=== PATIENT | male | born 1955 | race Caucasian/White ===

== ENCOUNTER 2019-07-08 09:52 | Emergency (ER) | payer BC, SELFPAY ==
[2019-07-08 10:04] VITALS: BP 176/99; PULSE 96; RESP 16; TEMP 37.7; O2SAT 98
--- NOTE | 2019-07-08 10:35 | ED.GENADULT ---
HPI - General Adult General Chief complaint: Skin/Abscess/Foreign Body Stated complaint: bump in gumline History of Present Illness HPI narrative: Patient is a 63-year-old male presents to the urgent care via POV for evaluation of left upper gum problem that occurred approximately 4 to 5 days ago. He states that area is erythematous and painful. He believes his symptoms are caused by herpes. He has had a similar occurrence in the past of which he was treated by his dentist with an antibiotic. He states his symptoms initially started in his nose. He states he had a sore in his nose approximately 9 days ago. The sore has recently resolved. Mild relief with Aleve and Tylenol. Nothing worsens symptoms. Denies injury. Pertinent negatives fever, chills, sweats, malaise, poor p.o. intake, change in appetite, headache, LOC, dizziness, streaking, drainage, numbness, tingling, blisters, loss of sensation, foreign body sensation, deformity, sob, chest pain, and heart palpitations/murmurs. Related Data Home Medications Medication Instructions Recorded Confirmed levothyroxine 07/08/19 lisinopril 07/08/19 Allergies Allergy/AdvReac Type Severity Reaction Status Date / Time No Known Allergies Allergy Mild Unverified 09/24/05 11:02 Review of Systems Review of Systems: Narrative: All other systems reviewed and are negative PMFSH Comments I have reviewed and agree with the patient's past medical, surgical, social, and family hx as documented by the RN. There is no relevant family history pertinent to the presenting complaint. Exam Narrative: Exam Narrative: GENERAL: Well-appearing, well-nourished, and in no acute distress. HEAD: Normocephalic, atraumatic. No sinus tenderness or facial swelling. NECK: Supple. No lymphadenopathy or nuchal rigidity. CHEST: Lung sounds are clear to auscultation in bilateral lung rosales. No respiratory distress. No evidence of cough upon examination. HEART: Regular rate and rhythm. No murmurs, gallops, or rubs heard. Normal peripheral pulses. Eyes: PERRLA and EOMI. Bilateral conjunctiva with erythema. Normal sclera, eyelids, and eyelashes. Periorbital areas without swelling, erythema, and warmth. No drainage appreciated. ENT: Ears: TMs pearly lewis. No bulging, erythema, or fluid appreciated. External auditory canals are Nose: Nares clear, no rhinorrhea or epistaxis. No swelling or erythema. Throat/Mouth: Mild erythema and swelling appreciated to gums surrounding tooth # 10-13. Missing teeth and dental caries are diffusely evident. no evidence of exudate, peritonsillar mass, lesions, ulcers or drooling. Uvula is midline and without erythema and swelling. Mucous membranes moist. Voice and breath odor normal. No evidence of dental abscess, avulsion, or fracture teeth. EXTREMITIES: Normal range of motion. No edema. SKIN: Warm, dry, no rash. No skin color changes. Excellent turgor. NEURO: No focal deficits. Alert and oriented x3. Course Vital Signs Vital signs: Vital Signs Temperature 99.9 F H 07/08/19 10:04 Pulse Rate 96 07/08/19 10:04 Respiratory Rate 16 07/08/19 10:04 Blood Pressure 176/99 H 07/08/19 10:04 Pulse Oximetry 98 07/08/19 10:04 Temperature 99.9 F H 07/08/19 10:04 Pulse Rate 96 07/08/19 10:04 Respiratory Rate 16 07/08/19 10:04 Blood Pressure 176/99 H 07/08/19 10:04 Pulse Oximetry 98 07/08/19 10:04 Medical Decision Making Differential Diagnosis Differential Diagnosis: Contact/allergic dermatitis, atopic dermatitis, psoriasis, cellulitis, tinea infection, parasite infection, shingles, dental abscess, HSV I, dental pain, dental caries Medical Records Medical records reviewed: Yes I reviewed the patient's medical records. Vital Signs Vital Signs: Vital Signs Temperature 99.9 F H 07/08/19 10:04 Pulse Rate 96 07/08/19 10:04 Respiratory Rate 16 07/08/19 10:04 Blood Pressure 176/99 H 07/08/19 10:04 Pulse Oximetry 98 07/08/19 10:04
== END 2019-07-08 11:17 | disposition home or self-care (01) ==
PROVIDERS: Emergency Provider Nurse Practitioner Family
DX: K08.89 Other specified disorders of teeth and supporting structures (principal); I10 Essential (primary) hypertension; E03.9 Hypothyroidism, unspecified
CPT/HCPCS: 99203; G0463